=== PATIENT | female | born 1950 | race Caucasian/White ===

== ENCOUNTER → 2017-03-23 | Outpatient (CLI) | payer MEDICARE, BC ==
--- NOTE | 2017-03-23 14:13 | Diagnostic Imaging Report ---
CLINICAL INDICATION: Patient with low back pain with bilateral leg pain on and off x1 month. No known injury. EXAM: MRI of the lumbar spine performed without IV contrast. Sequences include sagittal T2, sagittal T2 fat-sat, sagittal T1, and axial T2. COMPARISON: None. FINDINGS: There is mild dextroscoliosis of the lumbar spine. Otherwise, the lumbar spine has normal alignment with no fracture or dislocation. The lumbar vertebrae have normal T1 and T2 signal. The visualized portions of the distal spinal cord, conus medullaris, and cauda equina have normal anatomic appearance. The conus medullaris tip is seen at the upper L2 vertebral body level. No paraspinal soft tissue abnormality is seen. There are small disc spurs seen throughout the lumbar spine. L1-L2: There is mild facet arthropathy. There is no significant central spinal canal or neuroforaminal narrowing. L2-L3: There is a diffuse disc bulge with moderate anterior disc extrusion/herniation. There is moderate loss of intervertebral disc height and mild facet arthropathy. There is minimal impression upon the thecal sac anteriorly. There is mild bilateral neuroforaminal narrowing. L3-L4: There is a diffuse disc bulge with moderate loss of intervertebral disc height. There is small disc spur which extends into the left foraminal region. There is mild bilateral facet arthropathy. There is mild central canal narrowing, mild to moderate right neuroforaminal narrowing, and moderate left neuroforaminal narrowing. L4-L5: There is minimal sized anterior disc bulge and left foraminal disc bulge. There is mild to moderate bilateral facet arthropathy. There is no significant central canal narrowing. There is mild left neuroforaminal narrowing due to small disc bulge and facet arthropathy. L5-S1: There is a small broad posterior disc bulge and severe bilateral facet arthropathy. There is mild right neuroforaminal narrowing. There is no significant central canal narrowing. IMPRESSION: There is mild to moderate multilevel lumbar spine degenerative disc disease and mild dextroscoliosis of the lumbar spine. This is described in detail above. Dictated by: Dictated on workstation # [id number]
== END ==
LOC: RAD 13:02
PROVIDERS: ATTEND Physician Assistant
DX: M51.36 Other intervertebral disc degeneration, lumbar region (principal); M51.26 Other intervertebral disc displacement, lumbar region
CPT/HCPCS: 72148

== ENCOUNTER → 2017-07-07 | Outpatient (CLI) | payer MEDICARE, BC ==
[~2017-07-07] MED LIST: REGADENOSON 0.4 MG/5 ML SYR (LEXISCAN) IV ONE
[2017-07-07 09:56] VITALS: BP 158/75
--- NOTE | 2017-07-08 00:01 | STRESS TEST ---
DATE OF SERVICE: 07/07/2017 LEXISCAN MYOVIEW STRESS TEST REPORT REFERRING PHYSICIANS: Dr. Chicho Escobar and Dr. Vanita Lujan. Baseline heart rate is 73, baseline blood pressure 158/75. Baseline EKG is sinus rhythm with no ischemic changes. SUMMARY: The patient was injected with 10.63 mCi of technetium-99 Myoview and the resting images were obtained. Then, the patient received 0.4 mg of Lexiscan followed by 31.6 mCi of technetium-99 Myoview. Throughout the test, there were no EKG changes. The resting and stress images were reviewed and compared in the short axis, horizontal long axis, and vertical long axis views. Review of the images showed breast attenuation with decreased uptake involving the mid to apical anterior wall and anterolateral wall with subtle reversibility. SSS is 6, SDS 1. Transient ischemic dilatation with TID value 1.79. On the gated images, the left ventricle appeared to be in normal size with normal contractility. Calculated ejection fraction 73%. CONCLUSION: 1. The patient tolerated Lexiscan well. 2. Breast attenuation with typical female pattern with mild decreased uptake involving the mid to apical anterior wall and anterolateral wall with subtle reversibility. 3. Transient ischemic dilatation with TID value 1.79. 4. Normal left ventricular size with normal contractility. Calculated ejection fraction 73%. Job ID: [id number] DocumentID: [id number] Dictated Date: 07/07/2017 17:24:53 [employer] Distribution Engineer Date: 07/07/2017 23:44:40 Dictated By: JAQUELIN CHANG MD
== END ==
LOC: CARD 08:04
PROVIDERS: ATTEND Internal Medicine
DX: I25.10 Atherosclerotic heart disease of native coronary artery without angina pectoris (principal)
CPT/HCPCS: 78452; 93017